=== PATIENT | female | born 1985 | race Caucasian/White ===

== ENCOUNTER → 2018-11-13 | Outpatient (REF) | END | disposition home or self-care (01) | DRG 951 | LOC: PAGE 09:00 | PROVIDERS: ATTEND Nurse Practitioner Family | DX: Z23 Encounter for immunization (principal) ==

== ENCOUNTER 2021-08-04 15:46 | Observation (INO) | payer SELFPAY ==
[~2021-08-04] VITALS: Ht 167.6 cm; Wt 105.7 kg
--- NOTE | 2021-08-04 16:15 | NUR ---
PATIENT AMBULATED TO ROOM WITH STEADY GAIT AND PHYSICIAN NOTIFIED OF STATUS
--- NOTE | 2021-08-04 16:37 | NUR ---
PATIENT AMBULATED WITH STEADY GAIT TO RESTROOM TO PROVIDE URINE SAMPLE. SETTLED BACK INTO BED. UNCOMFORTABLE BUT NOT IN DISTRESS. VSS.
[2021-08-04 16:45] LABS: HEMATOCRIT 37.2 % (37.0-47.0); HEMOGLOBIN 12.2 g/dl (12.0-16.0); IMMATURE GRANULOCYTES 0.1 % (0.0-5.0); MEAN CELL VOLUME 89.9 fL CALC (80.0-100.0); MEAN CORPUSCULAR HGB 29.5 pG CALC (26.0-32.0); MEAN CORPUSCULAR HGB CONC 32.8 g/dL CAL (32.0-36.0); NEUT# 13.1 thou/uL (2.00-7.15); RED BLOOD COUNT 4.14 mill/uL (4.20-5.60); RED CELL DISTRI WIDTH 12.2 % (11.5-15.5)
[2021-08-04 16:55] LABS: URINE BILIRUBIN - DIPSTICK NEGATIVE (NEGATIVE); URINE BLOOD DIPSTICK TRACE-LYSED (NEGATIVE); URINE COLOR YELLOW; URINE GLUCOSE - DIPSTICK NEGATIVE (NEGATIVE); URINE KETONE TRACE mg/dL (NEGATIVE); URINE LEUK ESTERASE NEGATIVE (NEGATIVE); URINE PH 6.5 (4.5-8.0); URINE PROTEIN - DIPSTICK NEGATIVE (NEG-TRACE); URINE SPECIFIC GRAVITY >=1.030; URINE UROBILINOGEN - DIPSTICK 0.2 E.U./dL (0.2)
[2021-08-04 16:58] LABS: ALKALINE PHOSPHATASE 64 u/l (38-126); ANION GAP 9 (6-22 (CALC)); BILIRUBIN, TOTAL 0.6 mg/dL (0.0-1.4); BUN 5 mg/dL (7-17); BUN/CREATININE RATIO 7 (12-20 (CALC)); CARBON DIOXIDE 29 mmol/l (22-30); CHLORIDE 100 mmol/l (95-108); CREATININE 0.7 mg/dL (0.5-1.0); GFR > 60 ML/MIN (>=60 (CALC)); GFR FOR AFR.AMER. > 60 ML/MIN (>=60 (CALC)); LIPASE 26 u/l (23-300); POTASSIUM 3.5 mmol/l (3.5-5.1); SGOT/AST 18 u/l (14-36); SODIUM 134 mmol/l (137-146); TOTAL PROTEIN 7.7 g/dL (6.3-8.2)
[2021-08-04 17:00] LABS: URINE NITRITE - DIPSTICK NEGATIVE (Negative)
--- NOTE | 2021-08-04 17:30 | NUR ---
Reassessment of patient completed. UNCOMFORTABLE BUT NOT IN DISTRESS.
--- NOTE | 2021-08-04 18:20 | NUR ---
PATIENT REQUESTS PAIN MEDICATION. ASSISTED TO THE RESTROOM. REMINDED OF NPO STATUS WHEN SHE REQUESTED A DRINK. REASSURANCE PROVIDED. NOTIFIED MD OF NEED FOR PAIN MEDICATION.
--- NOTE | 2021-08-04 18:44 | NUR ---
PATIENT MEDICATED FOR PAIN. BLOOD CULTURES DRAWN. IV FLUIDS AND ANTIBIOTICS STARTED. PATIENT EXPRESSES PAIN RELIEF.
--- NOTE | 2021-08-04 20:19 | NUR ---
W/P/D SKIN PAIN HAS RESOLVED NO N/V
--- NOTE | 2021-08-04 21:35 | NUR ---
DR NESBITT NOTIFIED FOR ADMISSION ORDERS
--- NOTE | 2021-08-04 21:55 | NUR ---
PHONE REPORT TO NURSE KEVIN
--- NOTE | 2021-08-04 22:00 | NUR ---
PT TRANSPORTED TO ID RM [id number] IN STABLE CONDITION
[2021-08-04 22:01] VITALS: BP 105/65
--- NOTE | 2021-08-04 22:10 | NUR ---
PT ARRIVED TO MED SURG UNIT VIA WC ACCOMPANIED BY ED NURSE. PT APPEARS TO BE STABLE AT THIS TIME. PT REPORTS PAIN IS CONTROLLED AND "MUCH BETTER." SHE SELF AMBULATED TO RESTROOM AND BACK TO THE BED. OFFERS OF ASSISTANCE DENIED, STEADY GAIT OBSERVED. PT ORIENTED TO ROOM, CALL SYSTEM, LIGHTS, BED AND TV, VERBALIZED UNDERSTANDING. V/S ASSESSED.
--- NOTE | 2021-08-04 23:00 | NUR ---
IVF ADMINSTERED PER ORDERS AND ADMISSION COMPLETED AT THIS TIME. ASSESSMENT ALSO COMPLETED. ABD TENDER IN ALL QUADRANTS W/HYPO BOWEL SOUNDS.
[2021-08-05] VITALS (9 sets, daily range): BP systolic 85–108; BP diastolic 51–72
--- NOTE | 2021-08-05 00:54 | NUR ---
PT MEDICATED FOR PAIN AND W/IV ANTIBIOTIC THERAPY ORDERS PROVIDE. PT REPORTS PAIN 3/10 ON PAIN SCALE. DENIES ANY OTHER NEEDS AT THIS TIME.
--- NOTE | 2021-08-05 05:35 | NUR ---
pt medicated as orders provide and ivf replenished at this time.
--- NOTE | 2021-08-05 07:30 | NUR ---
PT ACCOMANIED BY MAYRA CARDOZO TO OR FOR PROCEDURE
[2021-08-05] MEDS ORDERED: PERCOCET 5/325M1 TAB PO (09:06)
--- NOTE | 2021-08-05 10:03 | NUR ---
REPORT REC FROM Guille VILLA RN
--- NOTE | 2021-08-05 10:05 | NUR ---
PT ARRIVED VIA STRETCHER ACCOMPANIED BY EVERTON KIM RN. PT ABLE TO TRANSFER FROM STRETCHER TO BED WITH SLOW STEADY GAIT, SLIGHTLY DROWSY BUT ABLE TO FOLLOW COMMANDS. PT C/O OF SOME NAUSEA DECLINES NEED FOR MEDICATION AT THIS TIME. X3 LAPAROSCOPIC INCISIONS NOTED WITH DERMABOND, ALL LOOK CDI. BILATERAL SCDS APPLIED. CONTACTS REMAIN AT BEDSIDE TABLE PATIENT IS NOT ABLE TO SEE WITHOUT THEM. PTS BP ON THE SOFTER SIDE 97/45, PT ASYMPTOMATIC. PT INSTRUCTED TO CALL BEFORE GETTING OOB. CALL LIGHT WITHIN REACH.
--- NOTE | 2021-08-05 13:00 | NUR ---
PT AWAKE AND ALERT UPON ENTERING ROOM. REPORTS PAIN AT LOW FROM PAIN MEDICATION GIVEN FROM GIANA RN. PT ALLOWED ASSESSMENT TO BE DONE AT THIS TIME. LUNG SOUNDS ARE CLEAR UPPER/ LOWER LOBES EQUALLY BILATERALLY. BREATHING IS EVEN AND UNLABORED. BOWEL SOUNDS X4, HEART SOUNDS ARE REGULAR. PT HAS 18G ON LAC, WITH D5 1/2 NS PER EMAR. BED IS AT LOWEST POSTION, FALL PRECAUTIONS ARE IN PLACE. CALL LIGHT AND PERSONAL ITEMS ARE WITHIN REACH.
--- NOTE | 2021-08-05 16:00 | NUR ---
PT SLEEPING IN ROOM, SHOWING NO SIGNS OF DISTRESS. CALL LIGHT WITHIN REACH.
--- NOTE | 2021-08-05 18:28 | NUR ---
PT REPORTS FEELING WELL AND WANTING TO GO HOME. DENIES ANY MORE NAUSEA OR PAIN AT THIS TIME. TOLERATED DINNER WELL. PT TO BE D/C
--- NOTE | 2021-08-05 18:54 | NUR ---
Discharge instructions given. Patient verbalizes understanding of same. Discharged in stable condition via Wheelchair to Home with staff. All belongings sent with pt. Special instructions given for no heavy lifting or strenuous activity. Business card for Dr. Aguilera also given to follow up with in 7-10.
== END 2021-08-05 19:10 | disposition home or self-care (01) | DRG 343 ==
LOC: ED 15:46 → ED-I 18:36 → ED 18:40 → MS2 18:41
PROVIDERS: Family Medicine; ADMIT Surgery; ATTEND Surgery
PROC: 0DTJ4ZZ Resection of Appendix, Percutaneous Endoscopic Approach (ICD-10-PCS; principal; 2021-08-05)
DX: K35.30 Acute appendicitis with localized peritonitis, without perforation or gangrene (principal); E66.9 Obesity, unspecified; Z68.37 Body mass index [BMI] 37.0-37.9, adult
CPT/HCPCS: G0378; J0131; J2710; Q9967